=== PATIENT | male | born 1935 | race Caucasian/White ===

== ENCOUNTER → 2016-08-01 19:36 | Outpatient (CLI) | payer MEDICARE, OTHER ==
[2016-08-01 20:20] LABS: BASOPHILS 0.5 % (0-2); HEMOGLOBIN 12.3 g/dL (13.5-17.5); IMMATURE GRANULOCYTES 0.2 % (0-5); LYMPHOCYTES 24.4 % (15-50); MCH 30.8 pg (26.0-34.0); MCHC 32.4 g/dL (31.0-37.0); MEAN PLATELET VOLUME 12.2 fL (7.4-10.4); MONOCYTES 8.3 % (2-11); NEUTROPHILS 63.6 % (40-80); PLATELET COUNT 152 10x3/uL (130-400); RDW 14.7 % (11.5-14.5); WBC 5.9 10x3/uL (4.8-10.8)
[2016-08-01 20:48] LABS: ANION GAP 12.8 mmol/L (8-16); CALCIUM 8.5 mg/dL (8.5-10.1); CARBON DIOXIDE 28.8 mmol/L (21.0-32.0); CHOL - HDL RATIO 3.1 ratio (2.3-4.9); CREATININE - SERUM 1.2 mg/dL (0.6-1.3); LDL-HDL RATIO 1.6 ratio (1.5-3.5); POTASSIUM - SERUM 4.6 mmol/L (3.5-5.1)
== END | disposition home or self-care (01) ==
LOC: D.LABREF 19:36
PROVIDERS: Internal Medicine Cardiovascular Disease
DX: I65.29 Occlusion and stenosis of unspecified carotid artery (principal); E78.5 Hyperlipidemia, unspecified

== ENCOUNTER → 2017-04-25 13:06 | Outpatient (CLI) | payer MEDICARE, OTHER ==
[2017-04-25 14:03] LABS: CHOL - HDL RATIO 2.7 ratio (2.3-4.9); LDL-HDL RATIO 1.2 ratio (1.5-3.5)
== END | disposition home or self-care (01) ==
LOC: D.LABREF 13:06
PROVIDERS: Nurse Practitioner
DX: E78.5 Hyperlipidemia, unspecified (principal)

== ENCOUNTER 2017-05-16 07:07 | Outpatient (CLI) | payer MEDICARE, OTHER ==
--- NOTE | ~2017-05-16 | HEMODYNAMI ---
PATIENT:JAYDEN DILLARD MEDICAL RECORD: [id number] : 31 LOCATION:[facility] GertrudeE16- ADMISSION DATE: 05/16/17 Generatedon:05/16/201711:55 Patient name: JAYDEN DILLARD Patient #: [id number] : 1935 Date of study: 05/16/2017 Page: Of Hemodynamic Procedure Report Patient Data Patient Demographics Procedure consent was obtained First Name: JAYDEN Gender: Male Last Name: GILMA : 1935 Patient #: [id number] Age: 82 year(s) Race: SSN: [id number] Additional ID: [id number] Contact details Address: [address] [place] [address] STREET State: [place] City: [facility] Zip code: [address] Admission Admission Data Admission Date: 05/16/2017 Admission Time: 8:37 Arrival Date: 05/16/2017 Arrival Time: 8:37 Admit Source: Other Insurance Payor: Medicare Room #: D.E16 Lab Results Lab Result Date: 05/16/2017 Lab Result Time: 0:00 Biochemistry Name Units Result Min Max BUN mg/dl 20 --(----)*- 7 18 Creatinine mg/dl 1.2 --(---*)-- 0.6 1.3 CBC Name Units Result Min Max Hemoglobin g/dl 12.3 *-(----)-- 13.5 17.5 Procedure Procedure Types Cath Procedure Diagnostic Procedure C LH w/Coronaries Sedation Charges Moderate Sedation up to 30 minutes PCI Procedure Coronary Stent Coronary Stent Initial Procedure Description Procedure Date Procedure Date: 05/16/2017 Procedure Start Time: 11:08 Procedure End Time: 11:51 Procedure Staff Name Function Gideon Gillespie MD Performing Physician Marina Abdul RT Monitor Lori Randolph RT Scrub Darwin Ruiz RN Nurse Procedure Data Cath Procedure Fluoroscopy Diagnostic fluoroscopy Total fluoroscopy Time: time: 12.5 min 12.5 min Diagnostic fluoroscopy Total fluoroscopy dose: dose: 1447 mGy 1447 mGy Contrast Material Contrast Material Type Amount (ml) Isovue 300 95 Entry Location Entry Primary Successful Side Size Upsize Upsize Entry Closure Succes sful Closure Location (Fr) 1 (Fr) 2 (Fr) Remarks Device Remarks Radial Right 6 Fr artery Short Femoral Right 5 Fr 6 Fr Exoseal artery Short Estimated blood loss: 5 ml Diagnostic catheters Device Type Used For End Catheter Placement DIAGNOSTIC Mukesh 110cm Multi-vessel 5Fr catheter ([id number]) Angiography DIAGNOSTIC 3DRC 5Fr Right Coronary catheter ([id number]) Angiography DIAGNOSTIC JL 4.0 5Fr Left Coronary catheter ([id number]) Angiography DIAGNOSTIC 3DRC 5Fr Right Coronary catheter ([id number]) Angiography DIAGNOSTIC Pigtail 5Fr LV Angiography catheter ([id number]) Procedure Complications No complications Procedure Medications Medication Administration Route Dosage 0.9% NaCl I.V. 100 ml/hr Oxygen NC 2 l/min Heparin Flush Bag added to field 2 bags (1000units/500ml NS) Lidocaine 2% added to field 20 Radial Cocktail added to field 1 syringe (Verapomil 2mg/Nitro 400mcg/Heparin 1500units) Versed I.V. 0.5 mg Fentanyl I.V. 50 mcg Radial Cocktail I.A. 1 syringe (Verapomil 2mg/Nitro 400mcg/Heparin 1500units) Heparin Bolus I.V. 7000 units Hemodynamics Rest HGB: 12.3 (g/dl) Heart Rate: 54 (bpm) Pressure Samples Time Site Value (mmHg) Purpose Heart Use Rate(bpm) 11:30 LV 187/3,26 EDP 50 11:31 AO 188/78(118) Pullback 40 11:31 LV 110/9,10 Pullback 40 Gradients Valve Time Site 1 Site 2 Mean SEP/DFP Peak To Heart Use (mmHg) (sec/min) Peak Rate (mmHg) (bpm) Aortic 11:31 LV AO 0 40 110/9,10 188/78(118) Calculations Valve P-P Mean Valve Index Valve Source Name Gradient Area Flow (cm2) Aortic 0 0 Snapshots Pre Cath Intra NCS Post Cath Vital Signs Time Heart Resp SPO2 etCO2 NIBP (mmHg) Rhythm Pain Sedation Rate (ipm) (%) (mmHg) Status Level (bpm) 10:57:08 55 16 99 0 188/93(170) NSR 0 (11) 10(A) , No pain 11:01:36 55 15 99 0 186/91(169) NSR 0 (11) 10(A) , No pain 11:06:02 55 14 99 0 185/89(162) NSR 0 (11) 10(A) , No pain 11:10:30 55 15 96 0 177/88(158) NSR 0 (11) 10(A) , No pain 11:14:48 56 14 96 0 129/69(93) NSR 0 (11) 10(A) , No pain 11:19:06 54 15 94 0 149/77(124) NSR 0 (11) 10(A) , No pain 11:24:18 48 16 97 0 165/74(140) NSR 0 (11) 10(A) , No pain 11:29:37 54 13 96 0 168/88(152) NSR 0 (11) 10(A) , No pain 11:33:59 51 13 97 0 178/88(153) NSR 0 (11) 10(A) , No pain 11:39:29 52 15 98 0 173/82(150) NSR 0 (11) 10(A) , No pain 11:43:56 53 13 96 0 171/81(151) NSR 0 (11) 10(A) , No pain 11:48:20 49 15 97 0 179/84(138) NSR 0 (11) 10(A) , No pain Medications Time Medication Route Dose Verified Delivered Reason Note s Effectiveness by by 10:55:41 0.9% NaCl I.V. 100 Darwin Darwin Per physician ml/hr Joseph Ruiz RN RN 10:55:51 Oxygen NC 2 l/min Darwin Darwin Per physician Joseph Ruiz RN RN 10:56:09 Heparin Flush added 2 bags Darwin Darwin used for Bag to Joseph Ruiz procedure (1000units/500ml field MCKEON RN NS) 10:56:20 Lidocaine 2% added 20ml Darwin Darwin for local to vial Joseph Ruiz anesthetic field MCKEON RN 10:56:32 Radial Cocktail added 1 Darwin Darwin used for (Verapomil to syringe Eraigan Joseph procedure 2mg/Nitro field MCKEON RN 400mcg/Heparin 1500units) 11:08:07 Versed I.V. 0.5 mg Darwin Darwin for sedation Joseph Ruiz RN RN 11:08:15 Fentanyl I.V. 50 mcg Darwin Darwin for sedation Joseph Ruiz RN RN 11:11:16 Radial Cocktail I.A. 1 Darwin Gideon for (Verapomil syringe Joseph Gillespie MD vasodilation 2mg/Nitro RN 400mcg/Heparin 1500units) 11:34:50 Heparin Bolus I.V. 7,000 Darwin Darwin for units Joseph Ruiz anticoagulation RN dimension specification inspector Log Time Note 10:38:28 Informed consent obtained and on chart 10:38:58 Marina Abdul RT(R) sent for patient. Start room use. 10:38:59 Time tracking: Regular hours 10:39:03 Plan of Care:Hemodynamics will remain stable., Cardiac rhythm will remain stable., Comfort level will be maintained., Respiratory function will remain adequate., Patient/ family verbilizes understanding of procedure., Procedure tolerated without complication., Recovers from procedure without complications.. 10:39:11 Admit Source: Other 10:39:14 Arrival Date: 05/16/2017 8:37:00 AM 10:39:22 Insurance Payor : Medicare 10:39:54 Lab Result : Hemoglobin 12.3 g/dl 10:39:54 Lab Result : Creatinine 1.2 mg/dl 10:39:54 Lab Result : BUN 20 mg/dl 10:54:42 Patient received from ED to CCL 2 Alert and oriented. Tansferred to table in Supine position. 10:54:43 Warm blankets applied, and emil hugger turned on for patient comfort. 10:54:43 Correct patient and procedure confirmed by team. 10:54:44 ECG and BP/O2 sat monitors applied to patient. 10:54:45 Vital chart was started 10:54:47 Baseline sample Acquired. 10:54:51 Rhythm: sinus rhythm 10:54:53 Full Disclosure recording started 10:54:57 H&P Date Dictated: 05/16/2017 New H&P dictated by physician.. 10:54:58 Pre-procedure instructions explained to patient. 10:54:59 Pre-op teaching completed and patient verbalized understanding. 10:55:05 Family in waiting room. 10:55:07 Patient NPO since Midnight. 10:55:09 Is the patient allergic to Iodine/contrast media? No. 10:55:10 Was the patient premedicated? No 10:55:24 Is patient on blood thinner?Yes 10:55:27 ACC The patient was administered the following blood thiners within the last 24 hours: ACCPlavix 10:55:31 Patient diabetic? Yes. 10:55:32 If diabetic: On Metformin? No 10:55:35 Previous problem with sedation/anesthesia? No ? 10:55:37 Snore? Yes 10:55:38 Sleep apnea? No 10:55:41 0.9% NaCl 100 ml/hr I.V. was administered by Darwin Ruiz RN; Per physician; 10:55:51 Oxygen 2 l/min NC was administered by Darwin Ruiz RN; Per physician; 10:56:09 Heparin Flush Bag (1000units/500ml NS) 2 bags added to field was administered by Darwin Ruiz RN; used for procedure; 10:56:20 Lidocaine 2% 20ml vial added to field was administered by Darwin Ruiz RN; for local anesthetic; 10:56:24 Deviated septum? No 10:56:24 Opens mouth fully? Yes 10:56:25 Sticks out tongue? Yes 10:56:27 Airway obstruction? No ? 10:56:29 Dentures? No ? 10:56:32 Radial Cocktail (Verapomil 2mg/Nitro 400mcg/Heparin 1500units) 1 syringe added to field was administered by Darwin Ruiz RN; used for procedure; 10:59:41 Pre procedure: right dorsailis pedis pulse 1+ Palpable, but thready & weak; easily obliterated 10:59:43 Pre procedure: left dorsailis pedis pulse 1+ Palpable, but thready & weak; easily obliterated 10:59:45 Patient pain scale 0/10 ?. 10:59:52 IV patent on arrival in left antecubital with 0.9% NaCl at [facility]. 10:59:54 Lab results completed and on chart. 10:59:58 Right Radial & Right Groin area was prepped with chlora-prep and draped in sterile fashion 10:59:59 Alarms reviewed by R. N. 10:59:59 Sharps counted by scrub and verified by R.N. 11:05:02 Physician arrived 11:05:03 --------ALL STOP TIME OUT------ 11:05:04 Final Timeout: patient, procedure, and site verified with staff and physician. All members of the team are in agreement. 11:05:06 Right Radial & Right Groin site verified by team. 11:05:09 Physical assessment completed. ASA score P 2 - A patient with mild systemic disease as per Gideon Gillespie MD. 11:05:16 Sedation plan: IV Moderate Sedation Medication:Versed, Fentanyl 11:05:30 Zero performed for pressure channel P1 11:05:48 Use device set Radial Dx or PCI 11:05:49 ACIST Syringe (50694) opened to sterile field. 11:05:49 Medline Cath Pack ([id number]) opened to sterile field. 11:05:49 Bag Decanter (2002S) opened to sterile field. 11:05:50 SHEATH 6FR Slender ([id number]) opened to sterile field. 11:05:50 DIAGNOSTIC WIRE .035 260cm J wire (408979) opened to sterile field. 11:05:51 ACIST Hand Control (16680) opened to sterile field. 11:05:51 ACIST Manifold (96745) opened to sterile field. 11:05:51 Tegaderm 4 x 4 (1626W) opened to sterile field. 11:05:52 MBrace Wrist Support ([id number]) opened to sterile field. 11:08:07 Versed 0.5 mg I.V. was administered by Darwin Ruiz RN; for sedation; 11:08:15 Fentanyl 50 mcg I.V. was administered by Darwin Ruiz RN; for sedation; 11:08:29 Procedure started. 11:08:33 Local anesthetic to right radial artery with Lidocaine 2% by Gideon Gillespie MD.INITIAL ACCESS ONLY 11:09:46 A 6 Fr Short sheath was inserted into the Right Radial artery 11:11:05 A DIAGNOSTIC Mukesh 110cm 5Fr catheter (821181) was advanced over the wire and used for Multi-vessel Angiography. 11:11:16 Radial Cocktail (Verapomil 2mg/Nitro 400mcg/Heparin 1500units) 1 syringe I.A. was administered by Gideon Gillespie MD; for vasodilation; 11:12:49 GLIDE WIRE ANGLE 260cm (AM4439) opened to sterile field. 11:16:39 Catheter removed. 11:16:49 A DIAGNOSTIC 3DRC 5Fr catheter (970895G) was advanced over the wire and used for Right Coronary Angiography. 11:18:35 Catheter removed. unable to cannulate vessel. 11:19:11 Unable to cannulate vessels; Attempting femoral access 11:19:27 SHEATH 5FR [place] (SUY846) opened to sterile field. 11:19:35 MICROPUNCTURE 4FR Cook (C49572) opened to sterile field. 11:19:45 Local anesthetic to right femoral artery with Lidocaine 2% by Gideon Gillespie MD.ADDITIONAL ACCESS 11:19:46 Access obtained with 4Fr micropunture. 11:19:55 A 5 Fr sheath was inserted into the Right Femoral artery 11:21:43 A DIAGNOSTIC JL 4.0 5Fr catheter (997927I) was advanced over the wire and used for Left Coronary Angiography. 11:22:30 LCA angiography performed. 11:22:32 Injector settings: Ml/sec: 3, Volume: 6, 11:26:23 Catheter removed. 11:26:37 A DIAGNOSTIC 3DRC 5Fr catheter (007620G) was advanced over the wire and used for Right Coronary Angiography. 11:27:28 RCA angiography performed. 11:27:31 Injector settings: Ml/sec: 3, Volume: 6, 11:28:08 Catheter removed. 11:29:11 A DIAGNOSTIC Pigtail 5Fr catheter (434962S) was advanced over the wire and used for LV Angiography. 11:29:59 INFLATOR Merit BasixCompak (OG3900) opened to sterile field. 11:29:59 SHEATH 6FR [place] (GZZ243) opened to sterile field. 11:30:37 LV hemodynamics recorded. 11:30:38 LV gram done using COLEMAN 11:30:49 Injector settings: Ml/sec: 12, Volume: 8, 11:31:38 EF : 35 % 11:31:50 Catheter removed. 11:31:51 Proceeding to intervention. 11:32:00 Sheath upsized to a 6 Fr Short. 11:33:31 COPILOT Valve Control (2666739) opened to sterile field. 11:33:37 BMW 190cm [place] 2 J wire (8693694W) opened to sterile field. 11:34:10 GUIDE 6FR XBLAD 4.0 catheter (88148691) opened to sterile field. 11:34:34 6 Fr xblad 4 guide catheter was inserted over the wire 11:34:50 Heparin Bolus 7,000 units I.V. was administered by Darwin Ruiz RN; for anticoagulation; 11:37:57 bmw wire advanced. 11:39:33 Wire advanced across lesion. 11:42:15 Inflation number: 1 A EUPHORA 2.5 x 20 Balloon ([id number]) was prepped and advanced across the Mid LAD, then inflated to 10 MARSHALL for 0:10 (min:sec). 11:42:38 Inflation number: 1 The EUPHORA 2.5 x 20 Balloon ([id number]) was reinflated across the Prox LAD, to 14 MARSHALL for 0:10 (min:sec). 11:43:17 Balloon removed over the wire. 11:45:06 Inflation Number: 2 A YAMILET RX 2.5 x 26 stent ([id number]) was prepped and advanced across the Prox LAD. The stent was deployed at 19 MARSHALL for 0:10 (min:sec). 11:45:19 Stent catheter was removed intact over wire. 11:47:24 Inflation number: 2 A NC UEPHORA 2.75 x 15 balloon ([id number]) was prepped and advanced across the Mid LAD, then inflated to 14 MARSHALL for 0:10 (min:sec). 11:47:49 Inflation number: 3 The NC UEPHORA 2.75 x 15 balloon ([id number]) was reinflated across the Mid LAD, to 20 MARSHALL for 0:10 (min:sec). 11:48:32 Balloon removed over the wire. 11:49:05 Wire removed. 11:49:06 Guide catheter removed. 11:49:11 TR BAND Standard ([id number]) opened to sterile field. 11:49:12 EXOSEAL 6Fr (EX600) opened to sterile field. 11:49:24 Sheath removed intact; hemostasis achieved with Exoseal to the Right Femoral artery. 11:49:26 Procedure ended.(Physican Out) 11:49:37 Fluoroscopy time 12.50 minutes. 11:49:49 Fluoroscopy dose: 1447 mGy 11:49:49 Flurop Dose total: 1447 11:49:52 Contrast amount:Isovue 300 95ml. 11:49:53 Sharps counted by scrub and verified by R.N. 11:49:56 TR band inflated with 10cc of air. 11:49:58 Insertion/operative site no bleeding no hematoma. 11:50:01 Post-op/insertion site Right Femoral artery dressed using a 4 x 4 and Tegaderm. 11:50:04 Post right femoral artery:stable 11:50:05 Post Procedure Pulses reassessed and unchanged 11:50:08 Post procedure rhythm: unchanged. 11:50:41 Estimated blood loss: 5 ml 11:50:43 Post procedure instruction explained to patient.Patient verbalizes understanding. 11:50:43 Patient needs reinforcement of post procedure teaching. 11:51:09 Procedure type changed to Cath procedure, Diagnostic procedure, LHC, LHC w/Coronaries, Sedation Charges, Moderate Sedation up to 30 minutes, PCI procedure, Coronary Stent, Coronary Stent Initial 11:51:09 Procedure and supply charges have been captured, reviewed, submitted and are correct. 11:51:13 Procedure Complication : No complications 11:51:16 Vital chart was stopped 11:51:16 See physician's report for complete and final results. 11:51:27 Report given to Pre/Post Procedure Room. 11:51:30 Patient transfered to Pre/Post Procedure Room with Stretcher. 11:51:32 Procedure ended. 11:51:32 Full Disclosure recording stopped 11:51:41 ACC-PCI Only Patient was given prescriptions, or instructed by Gideon Gillespie MD to start/continue the following medications upon discharge: Plavix 11:51:42 End room use (Document Last) Intervention Summary Intervention Notes Time ActionType Lesion and Equipment Used Action# Pressure Duration Attributes 11:42:15 Inflate Mid LAD EUPHORA 2.5 x 1 10 00:10 balloon 20 Balloon ([id number]) 11:42:38 Reinflate Prox LAD EUPHORA 2.5 x 1 14 00:10 balloon 20 Balloon ([id number]) 11:45:06 Place stent Prox LAD YAMILET RX 2.5 x 2 19 00:10 26 stent ([id number]) 11:47:24 Inflate Mid LAD NC UEPHORA 2 14 00:10 balloon 2.75 x 15 balloon ([id number]) 11:47:49 Reinflate Mid LAD NC UEPHORA 3 20 00:10 balloon 2.75 x 15 balloon ([id number]) Device Usage Item Name Manufacture Quantity Catalog Hospital Part [facility] Lot# / Number Charge Number Stock Stock Serial# Code ACIST Syringe Acist 1 59846 427731 416534 229464 20 (83750) Medical Systems Inc Medline Cath Cardinal 1 [id number] 069746 62396 242819 5 Pack Chemclin ([id number]) Bag Decanter Microtek 1 716898 79943 306859 5 () Medical Inc. SHEATH 6FR Terumo 1 [id number] 594244 865821 165599 40 Slender ([id number]) DIAGNOSTIC St Stan 1 512301 157367 303156 135316 30 WIRE .035 260cm J wire (845930) ACIST Hand Acist 1 10600 480427 839470 742567 5 Control Medical (50271) Systems Inc ACIST Manifold Acist 1 87730 543475 132214 878581 5 (97820) Medical Systems Inc Tegaderm 4 x 4 3M 1 1626W 407999 182175 687289 5 (1626W) MBrace Wrist Advanced 1 140-0250-00 497109 94756 249903 5 Support Vascular ([id number]) Dynamics DIAGNOSTIC Terumo 1 405023 598862 036073 782002 5 Mukesh 110cm 5Fr catheter (751409) GLIDE WIRE Terumo 1 KU1525 882383 903178 832268 5 ANGLE 260cm (FZ2796) DIAGNOSTIC Cardinal 1 850282E 348565 831830 991653 9 3DRC 5Fr Health catheter (999425X) SHEATH 5FR Terumo 1 JNB883 610750 233268 290432 40 [place] (CXH882) MICROPUNCTURE Cook Medical 1 W36659 506548 361359 968770 5 4FR Quotte (J94774) DIAGNOSTIC JL Cardinal 1 003657A 650358 225636 048404 10 4.0 5Fr Health catheter (297489G) DIAGNOSTIC Cardinal 1 652250A 605175 950168 489424 5 Pigtail 5Fr Health catheter (958570H) INFLATOR Merit Merit 1 EY8709 438092 017950 637927 15 BasixCompak Medical (XD6625) SHEATH 6FR Terumo 1 GQT544 474901 346682 501161 40 [place] (ZGT763) COPILOT Valve Huang 1 8361866 803266 005400 876491 5 Control Vascular (2656560) BMW 190cm Huang 1 2392029B 317611 85300 616698 5 [place] 2 J Vascular wire (5129950X) GUIDE 6FR Cardinal 1 79176507 016160 627720 863969 3 XBLAD 4.0 Health catheter (27815565) EUPHORA 2.5 x Medtronic 1 RPY1935B 690802 917629 584377 5 [id number] 20 Balloon (BCN8638Q) YAMILET RX 2.5 x Medtronic 1 [id number] 758662 2850185 775196 5 [id number] 26 stent ([id number]) NC UEPHORA Medtronic 1 [id number] 272542 458089 612463 0 [id number] 2.75 x 15 balloon ([id number]) TR BAND Terumo 1 LKJ86-WFH 125869 153847 638801 40 Standard ([id number]) EXOSEAL 6Fr Cardinal 1 EX600 945682 905045 655959 10 (EX600) Health Signature Audit [place] Stage Time Signature Unsigned Intra-Procedure 05/16/2017 Marina Abdul 11:55:11 AM RT(R) Signatures Monitor : Marina Abdul RT Signature : Date : Time : [facility] [address] [place] [address]
[2017-05-16 07:38] LABS: BASOPHILS 0.5 % (0-2); EOSINOPHILS 3.2 % (0-7); HEMOGLOBIN 12.3 g/dL (13.5-17.5); IMMATURE GRANULOCYTES 0.2 % (0-5); LYMPHOCYTES 26.1 % (15-50); MCH 30.8 pg (26.0-34.0); MCHC 33.2 g/dL (31.0-37.0); MCV 92.5 fL (80.0-100.0); MEAN PLATELET VOLUME 11.3 fL (7.4-10.4); MONOCYTES 11.2 % (2-11); NEUTROPHILS 58.8 % (40-80); PLATELET COUNT 151 10x3/uL (130-400); RDW 14.4 % (11.5-14.5); WBC 6.2 10x3/uL (4.8-10.8)
[2017-05-16 07:54] LABS: ALBUMIN 3.1 g/dL (3.4-5.0); ALKALINE PHOSPHATASE 44 U/L (46-116); ALT (SGPT) 18 U/L (10-68); BILIRUBIN - TOTAL 0.48 mg/dL (0.2-1.3); CALC OSMOLALITY 285 mosm/kg (275-300); CALCIUM 8.7 mg/dL (8.5-10.1); CARBON DIOXIDE 29.3 mmol/L (21.0-32.0); CHLORIDE - SERUM 106 mmol/L (98-107); CREATININE - SERUM 1.2 mg/dL (0.6-1.3); GLUCOSE 106 mg/dL (74-106); PROTEIN - SERUM 6.7 g/dL (6.4-8.2); SODIUM 142 mmol/L (136-145); UREA NITROGEN 20 mg/dL (7-18); eGFR NON AFRICAN AMERICAN 61 mL/min (90-120)
[2017-05-16 08:11] LABS: CHOLESTEROL, TOTAL 117 mg/dL (0-200); CKMB 1.3 U/L (0.0-3.6); CREATINE KINASE 93 UL (21-232); HDL CHOLESTEROL 39 mg/dL (32-96); LDL CHOLESTEROL 63 mg/dL (0-100); LDL-HDL RATIO 1.6 ratio (1.5-3.5); TRIGLYCERIDE 77 mg/dL (30-200); TROPONIN-I 0.039 ng/mL (0.000-0.060)
[2017-05-16] MEDS ORDERED: PLAVIX75 MG PO (12:09)
[2017-05-16] MEDS ORDERED: LIPITOR20 MG PO (12:10)
[2017-05-16] MEDS ORDERED: LISINOPRIL5 MG PO (12:10)
[2017-05-16] MEDS ORDERED: GLUCOTROL 5 MG T5 MG PO (12:51)
[2017-05-16] MEDS ORDERED: ZYLOPRIM300 MG PO (12:51)
[2017-05-16] MEDS ORDERED: PROPAFENONE HC150 MG PO (12:51)
[2017-05-16] MEDS ORDERED: COREG25 MG PO (12:51)
[2017-05-16] MEDS ORDERED: PROTONIX40 MG PO (12:51)
[2017-05-16] MEDS ORDERED: ZETIA10 MG PO (12:51)
[2017-05-16] MEDS ORDERED: COZAAR25 MG PO (12:51)
[2017-05-16] MEDS ORDERED: FISH OIL 1,2001 CAP PO (12:52)
[2017-05-16] MEDS ORDERED: UROXATRAL10 MG PO (12:52)
[2017-05-16] MEDS ORDERED: PROSCAR5 MG PO (12:52)
[2017-05-16] MEDS ORDERED: LIVALO2 MG PO (12:52)
[2017-05-16] MEDS ORDERED: BAYER CHEWABLE81 MG PO (12:52)
== END 2017-05-16 16:10 | disposition home or self-care (01) ==
LOC: OBSVTIME → D.CATH 07:07 → D.ER 07:07 → OBSVTIME 08:37 → D.CLR 08:37 → D.EDHOLD 08:37 → EDSTATUS 11:30 → D.EDHOLD 11:59 → D.CLR 11:59 → D.CATH 16:10
PROVIDERS: Emergency Medicine
DX: I25.110 Atherosclerotic heart disease of native coronary artery with unstable angina pectoris (principal); I45.10 Unspecified right bundle-branch block; R94.31 Abnormal electrocardiogram [ECG] [EKG]; Z01.812 Encounter for preprocedural laboratory examination
CPT/HCPCS: 93458; C9600

== ENCOUNTER 2017-12-31 07:31 | Emergency (ER) | payer MEDICARE, OTHER ==
[~2017-12-31] VITALS: Ht 175.3 cm; Wt 79.1 kg
[~2017-12-31 07:31] MED LIST: BAYER CHEWABLE81 MG PO; COREG25 MG PO; COZAAR25 MG PO; FISH OIL 1,2001 CAP PO; GLUCOTROL 5 MG T5 MG PO; LIPITOR20 MG PO; LISINOPRIL5 MG PO; LIVALO2 MG PO; PLAVIX75 MG PO; PROPAFENONE HC150 MG PO; PROSCAR5 MG PO; PROTONIX40 MG PO; UROXATRAL10 MG PO; ZETIA10 MG PO; ZYLOPRIM300 MG PO
[2017-12-31 07:38] VITALS: Ht 175.3 cm; Wt 79.1 kg
[2017-12-31 08:21] LABS: BASOPHILS 0.2 % (0-2); EOSINOPHILS 2.3 % (0-7); HEMATOCRIT 38.8 % (42.0-54.0); HEMOGLOBIN 13.2 g/dL (13.5-17.5); IMMATURE GRANULOCYTES 0.2 % (0-5); LYMPHOCYTES 16.5 % (15-50); MCH 31.7 pg (26.0-34.0); MEAN PLATELET VOLUME 10.3 fL (7.4-10.4); MONOCYTES 8.2 % (2-11); NEUTROPHILS 72.6 % (40-80); PLATELET COUNT 151 10x3/uL (130-400); RBC 4.17 10x6/uL (4.20-6.10); RDW 14.6 % (11.5-14.5); WBC 8.7 10x3/uL (4.8-10.8)
[2017-12-31 08:27] LABS: APPEARANCE CLEAR (CLEAR); BILIRUBIN NEGATIVE (NEGATIVE); COLOR STRAW (YELLOW); GLUCOSE NEGATIVE (NEGATIVE); KETONE NEGATIVE (NEGATIVE); NITRITE NEGATIVE (NEGATIVE); PROTEIN NEGATIVE (NEGATIVE); SPECIFIC GRAVITY 1.005 (1.005-1.020); UROBILINOGEN NORMAL (NORMAL)
[2017-12-31 08:49] LABS: ALBUMIN 3.1 g/dL (3.4-5.0); ANION GAP 13.3 mmol/L (8-16); BILIRUBIN - TOTAL 0.69 mg/dL (0.2-1.3); CARBON DIOXIDE 28.8 mmol/L (21.0-32.0); CREATININE - SERUM 1.1 mg/dL (0.6-1.3); POTASSIUM - SERUM 4.1 mmol/L (3.5-5.1); PROTEIN - SERUM 6.5 g/dL (6.4-8.2); TROPONIN-I 0.028 ng/mL (0.000-0.060)
[2017-12-31 09:33] VITALS: BP 151/70
== END 2017-12-31 09:34 | disposition home or self-care (01) ==
LOC: D.ER 07:31
PROVIDERS: Family Medicine
DX: K40.90 Unilateral inguinal hernia, without obstruction or gangrene, not specified as recurrent (principal)

== ENCOUNTER → 2018-02-21 05:00 | Day surgery (SDC) | payer MEDICARE, OTHER ==
[2018-02-20 09:22] LABS: HEMOGLOBIN 12.9 g/dL (13.5-17.5); MCH 31.9 pg (26.0-34.0); MCHC 33.9 g/dL (31.0-37.0); MCV 94.1 fL (80.0-100.0); MEAN PLATELET VOLUME 10.7 fL (7.4-10.4); RBC 4.04 10x6/uL (4.20-6.10); RDW 13.8 % (11.5-14.5); WBC 5.9 10x3/uL (4.8-10.8)
[2018-02-20 09:33] LABS: ANION GAP 11.4 mmol/L (8-16); CALCIUM 8.4 mg/dL (8.5-10.1); CREATININE - SERUM 1.3 mg/dL (0.6-1.3); POTASSIUM - SERUM 4.4 mmol/L (3.5-5.1)
[~2018-02-21] VITALS: Ht 170.2 cm; Wt 80.7 kg
--- NOTE | ~2018-02-21 | OP ---
PATIENT NAME: JAYDEN DILLARD MEDICAL RECORD: [id number] :31 LOCATION:[facility] ADMISSION DATE: SURGEON: RISA BLOUNT MD DATE OF OPERATION: 02/21/2018 PREOPERATIVE DIAGNOSIS: Symptomatic right inguinal hernia. POSTOPERATIVE DIAGNOSES: 1. Symptomatic non-incarcerated right indirect inguinal hernia. 2. Right cord lipoma. PROCEDURES: 1. Open repair of right indirect inguinal hernia with bilayer preperitoneal polypropylene mesh. 2. Excision of right cord lipoma. SURGEON: Risa Blount MD TESTER ROCKET ENGINE: None. BLOOD LOSS: Minimal. ANESTHESIA: General. COMPLICATIONS: None. The risks, possible complications and alternatives to the procedure were explained to the patient. He elects to proceed. The discussion specifically included, but was not limited to, bleeding requiring emergency reoperation, infection, intestinal injury as well as chronic pain. OPERATIVE COURSE: The patient was conveyed to the operating room electively on 02/21/2018. General anesthesia was induced by the anesthesia staff. The abdomen and genitals were sterilely prepped and draped. A transverse incision was accomplished in the right inguinal area. Sharp dissection was carried down through skin and subcutaneous tissue as well as Madhu fascia. The external oblique aponeurosis was then cleaned of overlying connective tissue. I incised the external oblique aponeurosis along the direction of its fibers. I bluntly dissected down through the internal oblique and transversus abdominis muscles. A preperitoneal pocket was fashioned bluntly. There was no direct component. No femoral component. A large indirect hernia was reduced in its entirety. There was a large cord lipoma. I clamped across the vascular pedicle to the cord lipoma and transected the cord lipoma distal to this. I then tied off the vascular pedicle to the cord lipoma with a single 3-0 Vicryl suture. I entered the indirect hernia sac. There was a sliding component. I ligated the sac highly. This was done with a pursestring 3-0 Vicryl suture. I then transected the sac distal to this. I then placed a bilayer preperitoneal polypropylene mesh into the preperitoneal space. Once I was satisfied with placement, I then allowed the internal oblique and transversus abdominis muscles to come together with multiple interrupted horizontal mattress 0 Surgidacs incorporating a portion of the underlying mesh. The external oblique aponeurosis was then closed with running #1 Vicryls. The subdermis was approximated with interrupted 3-0 Vicryls. Madhu fascia was OPERATIVE REPORT [id number] DILLARD,JAYDEN approximated with interrupted 3-0 Vicryls as well. The skin was approximated with a running intracuticular 3-0 Vicryl. Benzoin and Steri-Strips were applied. The patient was then extubated and conveyed to post-anesthesia care unit where he was in stable condition. He will be dismissed home with Val as well as Anatoly. I will see him in the office in 2-3 weeks. TRANSINT:[id number] Voice Confirmation ID: [id number] DOCUMENT ID: [id number] RISA BLOUNT MD at 2049 CC: LULU PAULINO M.D. and MIHAI JENNINGS MD [phone] DICTATION DATE: 02/21/18 1058 GOLD LEAF LABORER: 02/21/18 1213 [facility] [address] [place] [address]
[~2018-02-21 05:00] MED LIST changes: +COQ10 PO; +GLUCOTROL XL 5 M5 MG PO; +TRILIPIX135 MG PO
[2018-02-21 05:41] VITALS: BP 123/84; Ht 170.2 cm; Wt 80.7 kg
== END | disposition home or self-care (01) ==
LOC: D.PAN 05:00 → D.OPS 08:00
PROVIDERS: Anesthesiology
DX: K40.90 Unilateral inguinal hernia, without obstruction or gangrene, not specified as recurrent (principal); D17.6 Benign lipomatous neoplasm of spermatic cord; Z01.812 Encounter for preprocedural laboratory examination

== ENCOUNTER → 2018-10-02 12:42 | Outpatient (CLI) | payer MEDICARE, OTHER ==
[2018-02-21 05:41] VITALS: BMI 27.9
== END | disposition home or self-care (01) ==
LOC: D.HCCARDIO 12:42
PROVIDERS: ATTEND Internal Medicine Cardiovascular Disease
DX: I10 Essential (primary) hypertension (principal)

== ENCOUNTER 2018-12-10 11:28 | Outpatient (CLI) | payer MEDICARE, OTHER ==
[~2018-12-10] VITALS: Ht 170.2 cm; Wt 70.5 kg
--- NOTE | ~2018-12-10 | HEMODYNAMI ---
PATIENT:JAYDEN DILLARD MEDICAL RECORD: [id number] : 31 LOCATION:[facility] ADMISSION DATE: 12/10/18 Generatedon:12/10/201815:17 Patient name: JAYDEN DILLARD Patient #: [id number] : 1935 Date of study: 12/10/2018 Page: Of Hemodynamic Procedure Report Patient Data Patient Demographics Procedure consent was obtained First Name: JAYDEN Gender: Male Last Name: GILMA : 1935 Patient #: [id number] Age: 83 year(s) Race: SSN: [id number] Additional ID: [id number] Contact details Address: [address] [place] [address] [address] State: [place] City: [facility] Zip code: [address] Past Medical History Allergies Allergen Reaction Date Comments Reported Other allergy Other 12/10/2018 atorvastatin Admission Admission Data Admission Date: 12/10/2018 Admission Time: 11:28 Arrival Date: 12/10/2018 Arrival Time: 13:30 Room #: [id number] Insurance Payor: Medicare, Private health insurance Height (in.): 66.93 BSA: 1.81 (m2) Height (cm.): 170 BMI: 24.22 (kg/m2) Weight (lbs.): 154.32 Weight (kg.): 70 Lab Results Lab Result Date: 12/10/2018 Lab Result Time: 0:00 Biochemistry Name Units Result Min Max BUN mg/dl 24 --(----)-* 7 18 Creatinine mg/dl 1.3 --(---*)-- 0.6 1.3 eGFR ml/min 56 *-(----)-- 90 120 NONAFRICAN CBC Name Units Result Min Max Hemoglobin g/dl 10.8 *-(----)-- 13.5 17.5 Procedure Procedure Types Cath Procedure Diagnostic Procedure LHC LHC w/Coronaries Sedation Charges Moderate Sedation up to 30 minutes Procedure Description Procedure Date Procedure Date: 12/10/2018 Procedure Start Time: 14:59 Procedure End Time: 15:13 Procedure Staff Name Function Sulaiman Perez MD Performing Physician Radha Wise RT Monitor Marina Abdul RT Monitor Darwin Ruiz RN Nurse Lori Randolph RT Scrub Indication CAD Procedure Data Cath Procedure Fluoroscopy Diagnostic fluoroscopy Total fluoroscopy Time: 2.1 time: 2.1 min min Diagnostic fluoroscopy Total fluoroscopy dose: 558 dose: 558 mGy mGy Contrast Material Contrast Material Type Amount (ml) Isovue 300 46 Entry Location Entry Primary Successful Side Size Upsize Upsize Entry Closure Succes sful Closure Location (Fr) 1 (Fr) 2 (Fr) Remarks Device Remarks Femoral Right 5 Fr Exoseal artery Estimated blood loss: 5 ml Diagnostic catheters Device Type Used For End Catheter Placement MULTIPACK JL 4.0 5Fr Left Coronary catheter Angiography MULTIPACK 3DRC 5Fr Right Coronary catheter Angiography MULTIPACK Pigtail 5 Fr LV Angiography catheter Procedure Complications No complications Procedure Medications Medication Administration Route Dosage 0.9% NaCl I.V. 100 ml/hr Oxygen etCO2 Nasal cannula 2 l/min Heparin Flush Bag added to field 2 bags (1000units/500ml NS) Lidocaine 2% added to field 20 Versed I.V. 1 mg Fentanyl I.V. 25 mcg Hemodynamics Rest BSA: 1.81 (m2) HGB: 10.8 (g/dl) O2 Consumption: Estimated: 194.87 (ml/min) O2 Co nsumption indexed: Estimated:107.66 (ml/min/m) Heart Rate: 55 (bpm) Pressure Samples Time Site Value (mmHg) Purpose Heart Use Rate(bpm) 15:07 LV 185/9,21 Snapshot 53 Gradients Valve Time Site Site Mean SEP/DFP Peak To Heart Use 1 2 (mmHg) (sec/min) Peak Rate (mmHg) (bpm) Aortic 15:08 LV AO 55 Snapshots Pre Cath Intra NCS Post Cath Vital Signs Time Heart Resp SPO2 etCO2 NIBP (mmHg) Rhythm Pain Sedation Rate (ipm) (%) (mmHg) Status Level (bpm) 14:43:09 54 11 91 17.2 173/80(156) NSR 0 (11) 10(A) , No pain 14:47:36 58 16 98 1.5 167/76(149) NSR 0 (11) 10(A) , No pain 14:51:58 55 16 92 0 148/77(136) NSR 0 (11) 10(A) , No pain 14:57:11 54 14 98 0.7 146/66(127) NSR 0 (11) 9(A) , No pain 15:02:16 54 18 99 34.5 174/82(144) NSR 0 (11) 9(A) , No pain 15:07:38 51 27 99 35.3 170/62(158) NSR 0 (11) 9(A) , No pain 15:12:00 53 12 98 32.3 174/83(143) NSR 0 (11) 9(A) , No pain Medications Time Medication Route Dose Verified Delivered Reason Notes Eff ectiveness by by 14:42:06 0.9% NaCl I.V. 100 Darwin Darwin Per ml/hr Joseph Ruiz physician RN RN 14:42:16 Oxygen etCO2 2 Darwin Darwin for low 02 Nasal l/min Lorigan Eraigan sats cannula RN RN 14:42:28 Heparin Flush added 2 Darwin Darwin used for Bag to bags Eraigan Joseph procedure (1000units/500ml RN RN NS) 14:42:40 Lidocaine 2% added 20ml Darwin Darwin for local to vial Lorigan Lorigan anesthetic field RN RN 15:01:05 Versed I.V. 1 mg Darwin Darwin for Lorigan Lorigan sedation RN RN 15:01:16 Fentanyl I.V. 25 Darwin Darwin for mcg Lorigan Lorigan sedation RN lining cutter Log Time Note 14:32:26 Informed consent obtained and on chart 14:32:33 Diagnostic Cath Status : Elective 14:33:34 Indication : CAD 14:33:48 Darwin Ruiz RN sent for patient. Start room use. 14:33:51 Time tracking: Regular hours (M-F 7:00 - 5:00) 14:34:01 Plan of Care:Hemodynamics will remain stable., Cardiac rhythm will remain stable., Comfort level will be maintained., Respiratory function will remain adequate., Patient/ family verbilizes understanding of procedure., Procedure tolerated without complication., Recovers from procedure without complications.. 14:34:13 Patient received from Pre/Post Procedure Room to [facility] 2 Alert and oriented. Tansferred to table in Supine position. 14:34:16 Warm blankets applied, and emil hugger turned on for patient comfort. 14:34:17 Correct patient and procedure confirmed by team. 14:34:18 ECG and BP/O2 sat monitors applied to patient. 14:34:42 H&P Date Dictated: 12/10/2018 H&P Addendum completed by physician on day of procedure. (MUST COMPLETE FOR ALL OUTPATIENTS), New H&P dictated by physician.. 14:34:46 Pre-procedure instructions explained to patient. 14:34:47 Pre-op teaching completed and patient verbalized understanding. 14:34:51 Family in patients room. 14:34:54 Patient NPO since Midnight. 14:36:53 Patient allergic to Other allergyatorvastatin 14:40:59 Vital chart was started 14:41:01 Baseline sample Acquired. 14:41:58 Full Disclosure recording started 14:42:06 0.9% NaCl 100 ml/hr I.V. was administered by Darwin Ruiz RN; Per physician; Verbal order read back and verified. 14:42:09 Is the patient allergic to Iodine/contrast media? No. 14:42:13 Was the patient premedicated? No 14:42:16 Oxygen 2 l/min etCO2 Nasal cannula was administered by Darwin Ruiz RN; for low 02 sats; Verbal order read back and verified. 14:42:28 Heparin Flush Bag (1000units/500ml NS) 2 bags added to field was administered by Darwin Ruiz RN; used for procedure; Verbal order read back and verified. 14:42:40 Lidocaine 2% 20ml vial added to field was administered by Darwin Ruiz RN; for local anesthetic; Verbal order read back and verified. 14:42:55 Is patient on blood thinner?No 14:42:59 Patient diabetic? Yes. 14:43:13 If diabetic: On Metformin? No 14:43:17 ----Pre-sedation anethsthesia assessment.---- 14:43:44 Previous problem with sedation/anesthesia? No ? 14:44:10 Snore? No 14:44:13 Sleep apnea? No 14:44:15 Deviated septum? No 14:44:17 Opens mouth fully? Yes 14:44:19 Sticks out tongue? Yes 14:44:38 Airway obstruction? No ? 14:44:44 Dentures? No ? 14:45:00 Pre procedure: right dorsailis pedis pulse 1+ Palpable, but thready & weak; easily obliterated 14:45:06 Patient pain scale 0/10 ?. 14:45:31 IV patent on arrival in left forearm with 0.9% NaCl at [facility]. 14:46:13 Lab Result : BUN 24 mg/dl 14:46:13 Lab Result : Creatinine 1.3 mg/dl 14:46:13 Lab Result : eGFR NONAFRICAN 56 ml/min 14:46:13 Lab Result : Hemoglobin 10.8 g/dl 14:46:26 Lab results completed and on chart. 14:46:31 Right groin area was prepped with chlora-prep and draped in sterile fashion 14:46:33 Alarms reviewed by R. N. 14:46:33 Sharps counted by scrub and verified by R.N. 14:46:50 Physician arrived 14:46:50 --------ALL STOP TIME OUT------ 14:46:51 Final Timeout: patient, procedure, and site verified with staff and physician. All members of the team are in agreement. 14:46:54 Right groin site verified by team. 14:47:01 Fire Safety Assessment: A--An alcohol-based skin anteseptic being used preoperatively., C--Open oxygen or nitrous oxide is being used., D--An ESU, laser, or fiber-optic light is being used. 14:47:25 Physical assessment completed. ASA score P 2 - A patient with mild systemic disease as per Sulaiman Perez MD. 14:47:46 3a) 45-59 Moderately reduced kidney function. 14:48:13 Maximum allowable contrast dose (3.7 X eGFR X 0.75)155 ml. 14:48:27 Sedation plan: IV Moderate Sedation Medication:Versed, Fentanyl 14:50:48 Zero performed for pressure channel P1 14:57:32 Arrival Date: 12/10/2018 1:30:00 PM 14:57:55 Insurance Payor : Private health insurance, Medicare 14:58:06 Patient Height : 66.93 inches 14:58:14 Patient Weight : 154.32 lbs 14:58:41 Use device set Femoral Dx 14:58:43 ACIST Syringe (40009) opened to sterile field. 14:58:44 Bag Decanter (2002S) opened to sterile field. 14:58:44 Medline Cath Pack ([id number]) opened to sterile field. 14:58:47 ACIST Hand Control (89831) opened to sterile field. 14:58:48 ACIST Manifold (97737) opened to sterile field. 14:58:50 Tegaderm 4 x 4 (1626W) opened to sterile field. 14:59:01 SHEATH 5FR Mcintire (LTL781) opened to sterile field. 14:59:02 EMERALD Guide Wire (099-259) opened to sterile field. 14:59:08 DIAGNOSTIC Multipack 5Fr catheter set (LC5364) opened to sterile field. 14:59:18 Procedure started. 14:59:27 Local anesthetic to right femoral artery with Lidocaine 2% by Sulaiman Perez MD.INITIAL ACCESS ONLY 14:59:53 A 5 Fr sheath was inserted into the Right Femoral artery 15:01:05 Versed 1 mg I.V. was administered by Darwin Ruiz RN; for sedation; Verbal order read back and verified. 15:01:16 Fentanyl 25 mcg I.V. was administered by Darwin Ruiz RN; for sedation; Verbal order read back and verified. 15:01:22 A MULTIPACK JL 4.0 5Fr catheter was advanced over the wire and used for Left Coronary Angiography. 15:01:59 LCA angiography performed. 15:03:00 Injector settings: Ml/sec: 3, Volume: 6, 15:03:05 Catheter removed. 15:03:19 A MULTIPACK 3DRC 5Fr catheter was advanced over the wire and used for Right Coronary Angiography. 15:04:36 RCA angiography performed. 15:05:21 Injector settings: Ml/sec: 3, Volume: 6, 15:05:31 Catheter removed. 15:05:46 A MULTIPACK Pigtail 5 Fr catheter was advanced over the wire and used for LV Angiography. 15:08:11 LV hemodynamics recorded. 15:08:24 LV gram done using COLEMAN 15:08:29 Injector settings: Ml/sec: 5, Volume: 15, 15:08:42 EF : 20 % 15:09:19 Catheter removed. 15:09:22 EXOSEAL 5Fr (EX500) opened to sterile field. 15:09:44 Sheath removed intact; hemostasis achieved with Exoseal to the Right Femoral artery. 15:10:30 Procedure ended.(Physican Out) 15:10:41 Fluoroscopy time 02.10 minutes. 15:10:49 Flurop Dose total: 558 15:10:49 Fluoroscopy dose: 558 mGy 15:11:03 Dose Area Product 83074 mGy/cm. 15:11:28 Contrast amount:Isovue 300 46ml. 15:11:33 Sharps counted by scrub and verified by R.N. 15:11:37 Insertion/operative site no bleeding no hematoma. 15:11:43 Post-op/insertion site Right Femoral artery dressed using a 4 x 4 and Tegaderm. 15:11:50 Post right femoral artery:stable 15:11:53 Post Procedure Pulses reassessed and unchanged 15:12:02 Post-procedure physical assessment completed. ASA score P 2 - A patient with mild systemic disease as per Sulaiman Perez MD. 15:12:11 Post procedure rhythm: unchanged. 15:12:15 Estimated blood loss: 5 ml 15:12:18 Post procedure instruction explained to patient.Patient verbalizes understanding. 15:12:19 Patient needs reinforcement of post procedure teaching. 15:12:52 Procedure type changed to Cath procedure, Diagnostic procedure, LHC, LHC w/Coronaries, Sedation Charges, Moderate Sedation up to 30 minutes 15:12:56 Procedure and supply charges have been captured, reviewed, submitted and are correct. 15:13:04 Procedure Complication : No complications 15:13:12 Vital chart was stopped 15:13:14 See physician's report for complete and final results. 15:13:20 Report given to Pre/Post Procedure Room. 15:13:26 Patient transfered to Pre/Post Procedure Room with Stretcher. 15:13:34 Procedure ended. 15:13:34 Full Disclosure recording stopped 15:14:42 End room use (Document Last) Device Usage Item Name Manufacture Quantity Catalog Hospital Part Current Minimal L ot# / Number Charge Number Stock Stock Serial# Code ACIST Acist 1 50675 511059 239619 [id number] 20 Syringe StayNTouch (97451) Systems Inc Bag Microtek 1 925683 77517 506812 5 Decanter Medical Inc. () Medline Medline 1 [id number] 341039 93055 726922 5 Cath Pack ([id number]) ACIST Hand Acist 1 19899 345988 662662 855195 5 Control Medical (56122) Systems Inc ACIST Acist 1 72983 186388 324681 969622 5 Manifold Medical (36259) Systems Inc Tegaderm 4 3M 1 1626W 643386 850425 546465 5 x 4 (1626W) SHEATH 5FR Terumo 1 [id number] 495558 371446 038444 5 Mcintire (AWW781) EMERALD Cardinal 1 502-455 393821 356341 778830 5 Guide Wire Health (502-455) DIAGNOSTIC Cardinal 1 IM5138 354423 13505 384210 30 Multipack Health 5Fr catheter set (BV0410) MULTIPACK Cardinal 1 431986 5 JL 4.0 5Fr Health catheter MULTIPACK Cardinal 1 869430 5 3DRC 5Fr Health catheter MULTIPACK Cardinal 1 741860 5 Pigtail 5 Health Fr catheter EXOSEAL 5Fr Cardinal 1 EX500 176453 698737 865235 10 (EX500) Health Signature Audit Morton Stage Time Signature Unsigned Intra-Procedure 12/10/2018 Radha 3:15:51 PM Billie RT(R) (CV) Intra-Procedure 12/10/2018 Darwin 3:16:44 PM Joseph MCKEON Intra-Procedure 12/10/2018 Sulaiman Perez MD 3:17:21 PM [facility] [address] [place] [address]
[2018-12-10] MEDS ORDERED: PROTONIX40 MG PO (12:44)
[2018-12-10 12:57] VITALS: BP 187/87; Ht 170.2 cm; Wt 70.5 kg
[2018-12-10 13:09] LABS: BASOPHILS 0.1 % (0-2); EOSINOPHILS 1.9 % (0-7); HEMATOCRIT 32.5 % (42.0-54.0); HEMOGLOBIN 10.8 g/dL (13.5-17.5); IMMATURE GRANULOCYTES 0.3 % (0-5); LYMPHOCYTES 22.1 % (15-50); MCH 30.9 pg (26.0-34.0); MCHC 33.2 g/dL (31.0-37.0); MCV 92.9 fL (80.0-100.0); MEAN PLATELET VOLUME 10.6 fL (7.4-10.4); MONOCYTES 7.4 % (2-11); NEUTROPHILS 68.2 % (40-80); PLATELET COUNT 167 10x3/uL (130-400); RDW 14.6 % (11.5-14.5); WBC 6.8 10x3/uL (4.8-10.8)
[2018-12-10 13:42] LABS: ANION GAP 10.5 mmol/L (8-16); CALCIUM 9.2 mg/dL (8.5-10.1); CARBON DIOXIDE 29.9 mmol/L (21.0-32.0); CHOL - HDL RATIO 4.5 ratio (2.3-4.9); CREATININE - SERUM 1.3 mg/dL (0.6-1.3); LDL-HDL RATIO 2.9 ratio (1.5-3.5); POTASSIUM - SERUM 4.4 mmol/L (3.5-5.1)
--- NOTE | 2018-12-10 15:40 | NUR ---
RECEIVED PT FROM HYDRAULIC ASSEMBLER, PT AWAKENS TO VERBAL. DENIES ANY C/O. DRESSING IS CDI TO RIGHT GROIN, AREA IS SOFT AND NONTENDER. PEDAL PULSES PALPABLE. SINUS MARIAH AT 57, BP IS 176/79, PT DENIES ANY C/O. HOB IS FLAT, SIDE RAILS UP X2, CALL LIGHT IN REACH. DR PAULINO HAS ROUNDED ON PT AND SPOKEN WITH PT AND .
--- NOTE | 2018-12-10 15:47 | NUR ---
PT SLEEPING, RESP WITH EASE ON O2 AT 2LPM. DRESSING CDI RIGHT GROIN, PEDAL PULSES PALPABLE. HOB IS FLAT, AT BEDSIDE.
--- NOTE | 2018-12-10 16:09 | NUR ---
PT SLEEPING, DRESSING CDI TO RIGHT GROIN, AREA IS SOFT AND NONTENDER. PEDAL PULSES PALPABLE. VSS, AT BEDSIDE.
--- NOTE | 2018-12-10 17:12 | NUR ---
1645 HOB ELEVETD 30 DEGREES, VSS. DRESSING CDI, PEDAL PULSES 2+.
--- NOTE | 2018-12-10 17:13 | NUR ---
8328 SANDWICH SERVED, PT DENIES ANY C/O.
--- NOTE | 2018-12-10 17:31 | NUR ---
DRESSING REMAINS CDI, PEDAL PULSES PALPABLE. IV DC'D WITH CATH INTACT AND PT IS DRESSING FOR DC TO HOME WITH ASSIST.
--- NOTE | 2018-12-10 17:59 | NUR ---
1745 PT HAS VOIDED 600 CC CLEAR YELLOW URINE TO URINAL. DRESSING REMAINS CDI RIGHT GROIN, PT HAS DRESSED FOR DC TO HOME. DISCHARGE INSTRUCTIONS REVIEWED WITH PT AND WHO VERBALIZE UNDERSTANDING. PT ESCORTED TO PRIVATE AUTO VIA WC BY NURSE WITH DRIVING HIM HOME.
== END 2018-12-10 17:45 | disposition home or self-care (01) ==
LOC: D.CATH 11:28 → D.CLR 12:20 → D.CATH 13:30
PROVIDERS: ATTEND Internal Medicine Cardiovascular Disease
DX: I42.5 Other restrictive cardiomyopathy (principal); I25.10 Atherosclerotic heart disease of native coronary artery without angina pectoris

== ENCOUNTER → 2019-11-05 10:31 | Outpatient (CLI) | payer MEDICARE, OTHER ==
[2018-12-10 12:57] VITALS: BMI 24.3
== END | disposition home or self-care (01) ==
LOC: D.HCCECHO 10:30
PROVIDERS: ATTEND Internal Medicine Cardiovascular Disease
DX: I42.9 Cardiomyopathy, unspecified (principal)